=== PATIENT | female | born 1965 | race Caucasian/White ===

== ENCOUNTER → 2025-04-15 | Outpatient (CLI) | payer BC, SELFPAY ==
--- NOTE | 2025-04-15 15:45 | XR_ITS ---
Examination: MRI cervical spine without intravenous contrast Date and time of exam: April 16, 2025, 1736 hours INDICATIONS: Neck pain radiating down both arms and hands 13 years Technique: Multiple axial and sagittal sections of the cervical spine to been obtained. T2 weighted sagittal sections, TR 3, 270, TE 117 T1-weighted sagittal sections, TR 500, TE 11 T1-weighted axial sections, TR 607, TE 12, axial sections TR 18, TE 27 and T2 weighted transverse sections, TR 3920, TE 122. Findings: Straightening normal cervical lordosis No cervical fracture Intact odontoid. Diffuse cervical disc desiccation Moderate disc narrowing C6-C7 Cervical cord is poorly visualized C2-C3 no disc protrusion C3-C4 no disc protrusion C4-C5 no disc protrusion C5-C6 4 mm central subarticular osteophyte disc complex, moderate right neuroforaminal stenosis C6-C7 2 mm central subarticular osteophyte disc complex C7-T1 no disc protrusion IMPRESSION: Study quality is significantly degraded secondary to the patient's size Poor visualization cervical cord, possibly increased signal seen with demyelinating disease, consider MRI brain follow-up MS protocol as clinically warranted C5-C6 4 mm central subarticular osteophyte disc complex, moderate right neuroforaminal stenosis
--- NOTE | 2025-04-15 16:15 | XR_ITS ---
MRI shoulder, left, without contrast. Date and time: April 15, 2025 1701 hours Technique: Multiple axial, sagittal and coronal sections of the shoulder have been obtained. Siemens high-resolution 1.5 Lovely MRI scanner is utilized. Axial fat-suppressed sections, TR 2350, TE 18 T2-weighted coronal fat-saturated images, TR 3500, TE 7100 T1-weighted coronal images, TR 500, TE 15 T2-weighted sagittal fat-saturated images, TR 3500, TE 57 T1-weighted sagittal sections, TR 504, TE 13. Findings: Supraspinatus tendon insertion is intact. Infraspinatus tendon insertion is intact. Subscapularis insertion is intact. Subscapularis bursa is not seen. Long head of the biceps is in the bicipital groove. No definite tear of the biceps superior labral anchor is seen. Retraction of the musculotendinous junction of the rotator cuff is not seen Rotator cuff grossly intact. Tendinosis pattern is moderate. Distance between the acromium and humeral head is 9 mm Atrophy of the supraspinatus muscle is severe. Atrophy of the infraspinatus muscle is severe. Sagittal sections demonstrate a horizontal acromion. Acromioclavicular joint demonstrates moderate osteoarthritis. Osacromiale is not identified. Abnormal signal in the upper lateral and medial femoral head Fraying and irregularity labral margins. Bony glenoid fossa on the sagittal sections does not demonstrate osseous defect. Occult fracture or area of avascular necrosis is not seen. Acromioclavicular joint separation is not visible. Defect in the posterolateral margin of the humeral head is not seen Impression: Overall study is severely degraded secondary to the patient's size Rotator cuff grossly intact Large defects in the humeral head, recommend plain film correlation left shoulder Fraying and irregularity anterior superior posterior labral margins
== END | disposition home or self-care (01) ==
PROVIDERS: PCP Physician Assistant; Referring Provider Physician Assistant; Visit Provider Physician Assistant
DX: M25.812 Other specified joint disorders, left shoulder (principal); M25.78 Osteophyte, vertebrae; G93.9 Disorder of brain, unspecified; M48.02 Spinal stenosis, cervical region
CPT/HCPCS: 72141; 73221